=== PATIENT | male | born 1960 | race Caucasian/White ===

== ENCOUNTER → 2021-03-01 | Outpatient (CLI) | payer OTHER ==
--- NOTE | 2021-03-01 09:37 | REP ---
INDICATION: PAIN LEFT KNEE. COMPARISON: None. 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 There is increased sclerosis along the tibial plateau with very subtle medial joint space narrowing. [place] view demonstrates increased sclerosis along the posterior patellar margin with small marginal patellar spurring as well as increased sclerosis and subtle fraying along the anterior patellar margin suggesting associated tendinopathy. No acute fracture or dislocation. No definite effusion. 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 <Electronically signed by Magen Ocampo > 03/01/21 0933
== END ==
LOC: M SOG 07:52
PROVIDERS: ATTEND Orthopaedic Surgery Adult Reconstructive Orthopaedic Surgery
DX: M25.562 Pain in left knee (principal)

== ENCOUNTER → 2021-12-30 | Outpatient (CLI) | payer OTHER | LOC: M PLAIMG 07:55 | PROVIDERS: ATTEND Orthopaedic Surgery Adult Reconstructive Orthopaedic Surgery | DX: M23.92 Unspecified internal derangement of left knee (principal) ==

== ENCOUNTER → 2022-01-27 | Outpatient (CLI) | payer OTHER ==
[~2022-01-27] MED LIST: AMLO1TAB25 PO; ATOR1TAB19 PO
== END ==
LOC: M LABSMTC 11:25
PROVIDERS: ATTEND Anesthesiology
DX: Z01.818 Encounter for other preprocedural examination (principal); Z11.52 Encounter for screening for COVID-19

== ENCOUNTER → 2022-01-27 | Outpatient (CLI) | payer OTHER | LOC: M EKG 11:39 | PROVIDERS: ATTEND Orthopaedic Surgery Adult Reconstructive Orthopaedic Surgery | DX: R06.83 Snoring (principal); I45.10 Unspecified right bundle-branch block ==

== ENCOUNTER 2022-02-01 08:53 | Day surgery (SDC) | payer OTHER ==
[~2022-02-01] VITALS: Ht 182.9 cm; Wt 92.0 kg
[~2022-02-01 08:53] MED LIST changes: +ACETAMINOPHEN 500 MG TAB PO ONE; +CelecoXIB 400 MG CAP PO ONE; +GABAPENTIN 300 MG CAP PO ONE; +ONDANSETRON 4MG/2ML VIAL IV ONE
[2022-02-01] MEDS ORDERED: LR 1,000 ML IV ONE (10:30)
[2022-02-01] MEDS ORDERED: EPINEPHrine 1MG/ML INJ 30ML MD-VIAL As Ordered ONE (13:05)
[2022-02-01] MEDS ORDERED: BUPIVACAINE HCL 0.5% 30ML VIAL As Ordered ONE (13:06)
[2022-02-01] MEDS ORDERED: ONDANSETRON 4MG/2ML VIAL As Ordered ONE (13:40)
[2022-02-01] MEDS ORDERED: LIDOCAINE 2% 100MG/5ML SDV (FOR ANES.) As Ordered ONE (13:40)
[2022-02-01] MEDS ORDERED: MIDAZOLAM INJ 2MG/2ML VIAL (J2250 PER 1MG) As Ordered ONE (13:40)
[2022-02-01] MEDS ORDERED: fentaNYL 100 MCG/2 ML INJECTION As Ordered ONE (13:40)
[2022-02-01] MEDS ORDERED: dexameTHASONE 4 MG/ML 1ML VIAL (J1100 PER 1MG) As Ordered ONE (13:40)
[2022-02-01] MEDS ORDERED: propofoL 200 MG/20 ML VIAL As Ordered ONE (13:40)
[2022-02-01] MEDS ORDERED: LR 1,000 ML IV SCH ×2 (14:45)
[2022-02-01] MEDS ORDERED: oxyCODONE 5MG TAB PO PRN (14:45)
[2022-02-01] MEDS ORDERED: fentaNYL 100 MCG/2 ML INJECTION IV PRN (14:45)
[2022-02-01] MEDS ORDERED: ONDANSETRON 4MG/2ML VIAL IV PRN (14:45)
[2022-02-01 16:10] VITALS: BP 139/87
== END 2022-02-01 16:18 | disposition home or self-care (01) ==
LOC: M SDC 08:53
PROVIDERS: ATTEND Orthopaedic Surgery Adult Reconstructive Orthopaedic Surgery
DX: M23.232 Derangement of other medial meniscus due to old tear or injury, left knee (principal); M23.262 Derangement of other lateral meniscus due to old tear or injury, left knee; M94.262 Chondromalacia, left knee; I10 Essential (primary) hypertension; E78.00 Pure hypercholesterolemia, unspecified; N41.9 Inflammatory disease of prostate, unspecified; Z79.899 Other long term (current) drug therapy; Z88.8 Allergy status to other drugs, medicaments and biological substances
CPT/HCPCS: 29880; J0171; J1100; J2250; J2405; J3010

== ENCOUNTER → 2022-08-29 | Outpatient (CLI) | payer OTHER ==
[~2022-08-29] MED LIST changes: -ACETAMINOPHEN 500 MG TAB PO ONE; -CelecoXIB 400 MG CAP PO ONE; -GABAPENTIN 300 MG CAP PO ONE; -ONDANSETRON 4MG/2ML VIAL IV ONE
== END ==
LOC: M SOG 12:58
PROVIDERS: ATTEND Orthopaedic Surgery Adult Reconstructive Orthopaedic Surgery
DX: M16.11 Unilateral primary osteoarthritis, right hip (principal)

== ENCOUNTER → 2023-09-05 | Outpatient (CLI) | payer MEDICARE, OTHER ==
[2023-09-05 18:10] LABS: INR 1.02; PARTIAL THROMBOPLASTIN TIME 34.4 SECONDS (24.8-34.2); PROTHROMBIN TIME 13.1 SECONDS (12.5-14.5)
[2023-09-05 18:12] LABS: BASO % 0.5 % (0.0-1.0); EOS # 0.3 10^3/uL (0.0-0.5); EOS % 6.7 % (0.0-3.0); HEMATOCRIT 44.4 % (42.0-52.0); HEMOGLOBIN 15.3 g/dl (13.5-17.5); LYMPH # 1.5 10^3/uL (1.5-5.0); MEAN CORPUSCULAR HEMOGLOBIN 31.7 pg (27.0-33.0); MEAN CORPUSCULAR HGB CONC 34.5 g/dl (32.0-36.5); MEAN CORPUSCULAR VOLUME 91.9 fl (80.0-96.0); MONO # 0.4 10^3/uL (0.0-0.8); NEUTROPHILS # 2.2 10^3/uL (1.5-8.5); NEUTROPHILS % 50.6 % (36.0-66.0); PLATELET COUNT, AUTOMATED 170 10^3/uL (150-450); RED BLOOD COUNT 4.83 10^6/uL (4.30-6.10); WHITE BLOOD COUNT 4.4 10^3/uL (4.0-10.0)
== END ==
LOC: M PLALAB 15:06
PROVIDERS: ATTEND Internal Medicine Hematology
DX: R79.1 Abnormal coagulation profile (principal)

== ENCOUNTER → 2023-10-05 | Outpatient (CLI) | payer MEDICARE ==
[2023-10-08 13:07] LABS: COAGULATION FACTOR XI ACTIVITY 116 % (60-150); COAGULATION FACTOR XII ACTIVIT 111 % (50-150); F8 ACTIVITY FOR F8 PANEL 42 % (56-140); F8 ACTIVITY vWB FOR F8 PANEL 33 % (50-200); F8 ANTIGEN FOR F8 PANEL 48 % (50-200)
== END ==
LOC: M PLALAB 10:48
PROVIDERS: ATTEND Internal Medicine Hematology
DX: R79.1 Abnormal coagulation profile (principal)

== ENCOUNTER → 2023-11-09 | Outpatient (CLI) | payer MEDICARE ==
[2023-11-09 14:07] LABS: COLLAGEN EPINEPHRINE 172 SECONDS (74-162)
[2023-11-09 14:37] LABS: COLLAGEN ADP 136 SECONDS (56-103)
== END ==
LOC: M PLALAB 11:23
PROVIDERS: ATTEND Internal Medicine Hematology
DX: D68.00 Von Willebrand disease, unspecified (principal)

== ENCOUNTER → 2024-04-03 | Outpatient (REF) | payer MEDICARE, OTHER | LOC: M LAB REF 17:35 | PROVIDERS: ATTEND Surgery | DX: C44.529 Squamous cell carcinoma of skin of other part of trunk (principal) ==